=== PATIENT | female | born 1935 | race Caucasian/White ===

== ENCOUNTER → 2018-04-08 08:40 | Outpatient (CLI) | payer MEDICARE, SELFPAY ==
--- NOTE | 2018-04-08 08:00 | RAD_ITS ---
PROCEDURE: Fluoroscopic guided Hip Injection DATE: April 08, 2018. INDICATION: Female, 82 years old. Chronic right hip pain. PHYSICIAN: Eric Blackman M.D. MEDICATIONS: 6 mg of dexamethasone and 3 cc of 1% lidocaine. 2% Lidocaine administered subcutaneously for local anesthesia. ACCESS SITE: Right hip. NEEDLE: 22-gauge spinal needle. FLUOROSCOPY TIME (if supplied): (0:35) minutes/seconds FINDINGS: The risks, benefits, and alternatives to the procedure were explained to the patient. The specific risks of bleeding, infection, and neurovascular injury were detailed and accepted. Witnessed informed consent was obtained. A 22-gauge spinal needle was positioned under radiograph fluoroscopic localization. Approximately 2 cc of Isovue-300 instilled for localization purposes. Medication was then injected. The patient tolerated the procedure well without any immediate complications. The patient was placed supine with head elevated and returned to the floor in stable condition. RAD/Inj/Asp Vaughn Jt Should/Hip/Knee IMPRESSION: 1. Successful fluoroscopic guided hip injection. Electronically Signed: Eric Blackman MD at 11:05 EST , Service support ,
== END ==
LOC: RAD 08:41
PROVIDERS: Family Provider Family Medicine; PCP Family Medicine; Referring Provider Specialist; Visit Provider Specialist
DX: M16.11 Unilateral primary osteoarthritis, right hip (principal); G89.29 Other chronic pain
CPT/HCPCS: 20610; 77002; Q9967; J0702

== ENCOUNTER → 2020-04-16 12:28 | Outpatient (CLI) | payer MEDICARE, SELFPAY ==
--- NOTE | 2020-04-16 12:42 | CT_ITS ---
STUDY: CT CHEST WITH CONTRAST REASON FOR EXAM: Female, 84 years old. COUGH, FEELS SOMETHING IN AIRWAY RADIATION DOSAGE (If Supplied By Facility): CTDIvol = ( 11.46 ) mGy, DLP = ( 331.13 ) mGycm TECHNIQUE: Transaxial imaging was performed following intravenous administration of IV 100mL Isovue-370. Multiplanar coronal and sagittal images were reformatted. Individualized dose optimization techniques were used for this CT. COMPARISON: None. FINDINGS: Minimal increased markings at the right lung base laterally suggestive of scarring. Minimal linear scarring at the left lung base as well. There is no demonstrated pleural abnormality. There are calcifications of the coronary arteries. Normal mediastinum. Normal hilar regions. Normal enhanced pulmonary arteries. There is atherosclerotic calcification of the aortic arch with tortuosity and elongation of the aortic arch and descending thoracic aorta. There are multi-level degenerative changes of the thoracic spine. Increased kyphosis. There is no demonstrated abnormality of the visualized upper abdomen. CT/Chest WITH Contrast IMPRESSION: Findings suggestive of mild bibasilar scarring slightly more prominent at the right lung base. Electronically Signed: Eric Blackman MD at 14:50 EST , Service support ,
[2020-04-16 13:05] LABS: CREATININE FINGERSTICK 1.2 mg/dL (0.55-1.02)
== END ==
LOC: CT 12:37
PROVIDERS: PCP Family Medicine; Referring Provider Internal Medicine Pulmonary Disease; Visit Provider Internal Medicine Pulmonary Disease
DX: R05 Cough (principal)
CPT/HCPCS: 71260; Q9967

== ENCOUNTER → 2020-06-28 08:24 | Outpatient (CLI) | payer MEDICARE, SELFPAY ==
--- NOTE | 2020-06-28 08:37 | RAD_ITS ---
STUDY: AIR CONTRAST UPPER GI SERIES REASON FOR EXAM: Female, 84 years old. HX ULCERS/FULLNESS IN THROAT/ FLUOROSCOPY TIME (if supplied): (48 seconds) minutes/seconds. 25 images were obtained. TECHNIQUE: SINGLE CONTRAST AND AIR CONTRAST FLUOROSCOPIC IMAGES. COMPARISON: None. FINDINGS: The cervical esophagus demonstrates normal motility without aspiration. There is no stricture or extrinsic mass effect. No intraluminal polypoid mass is identified. The thoracic esophagus distends well without stricture or mucosal fold thickening. No mucosal ulcerations are identified. There is no extrinsic mass effect. There are no diverticula. No hiatal hernia or gastroesophageal reflux was identified. The stomach distends well without mucosal fold thickening or mucosal ulceration. There is no intraluminal mass. The duodenal bulb is freely distensible without deformity or ulceration. The duodenal sweep is normal in position and caliber. RAD/Upper GI w/BA Swallow IMPRESSION: Normal air-contrast upper GI series. Electronically Signed: Eric Blackman MD at 12:27 EDT , Service support ,
== END ==
PROVIDERS: PCP Family Medicine; Referring Provider Internal Medicine Pulmonary Disease; Visit Provider Internal Medicine Pulmonary Disease
DX: J39.2 Other diseases of pharynx (principal)
CPT/HCPCS: 74246

== ENCOUNTER 2021-09-04 12:54 | Day surgery (SDC) | payer MEDICARE, SELFPAY ==
[2021-09-04] MEDS: Lactated Ringers 1,000 ML 15 ML IV (13:05)
[2021-09-04 13:28] VITALS: BP 143/98; PULSE 69; RESP 18; TEMP 36.4; O2SAT 100; BMI 27.7
[2021-09-04 13:46] LABS: Bedside Glucose 120 mg/dL (74-106)
[2021-09-04] MEDS: Lidocaine 2% (5ml sdv) 5 ML VIAL.MPF (14:20)
[2021-09-04] MEDS: Phenylephrine 0.25% 15 ML NASAL.SRY 15 SPRAY NASAL (14:20)
[2021-09-04 14:41] VITALS: BP 143/98; BP 144/70; PULSE 63; RESP 18; TEMP 36.8; O2SAT 99
--- NOTE | 2021-09-04 14:42 | OP.BRONCH_ITS ---
Patient Name: Izzy Rivera Procedure Date: 09/04/2021 2:02 PM Date of : 1935 Age: 85 Procedure: Bronchoscopy Indications: Chronic cough, Chronic cough with normal CT Providers: Jon Casey MD Referring MD: Jon Casey MD Medicines: Lidocaine 2% subglottic space 10 mL, Oxygen 6 L/min Complications: No immediate complications Procedure: Pre-Anesthesia Assessment: - A History and Physical has been performed. The patient's medications, allergies and sensitivities have been reviewed. - The risks and benefits of the procedure and the sedation options and risks were discussed with the patient. All questions were answered and informed consent was obtained. - The anesthesia plan was to use moderate sedation/analgesia. After I obtained informed consent, the scope was passed under direct vision. Throughout the procedure, the patient's blood pressure, pulse, and oxygen saturations were monitored continuously - see note anasthesia- DIONTE. The bronchoscope was introduced through the right nostril and advanced to the tracheobronchial tree. The procedure was accomplished without difficulty. The patient tolerated the procedure well. The total duration of the procedure was 9 minutes. Moderate Sedation: Moderate (conscious) sedation was personally administered by an anesthesia professional. The following parameter was monitored: oxygen saturation. Findings: The endotracheal tube is in good position. The visualized portion of the trachea is of normal caliber. The jessica is sharp. The tracheobronchial tree was examined to at least the first subsegmental level. Bronchial mucosa and anatomy are normal; there are no endobronchial lesions, and no secretions. The nasopharynx/oropharynx appears normal. The larynx appears errythematous - see photo. The vocal cords appear normal. The subglottic space is normal. The trachea is of normal caliber. The jessica is sharp. The tracheobronchial tree was examined to at least the first subsegmental level. Bronchial mucosa and anatomy are normal; there are no endobronchial lesions, and no secretions. Respiratory tract: Impression: - Chronic cough - Chronic cough with normal CT - The airway examination was normal. - The airway examination was normal. - No specimens collected. - The airway examination was normal. Recommendation: - Discharge patient to home (via wheelchair). - Follow up with bronchoscopist in 3-4 weeks. Procedure Code(s): --- Professional --- 88383, Bronchoscopy, rigid or flexible, including fluoroscopic guidance, when performed; diagnostic, with cell washing, when performed (separate procedure) Diagnosis Code(s): --- Professional --- R05, Cough CPT copyright 2017 [employer]. All rights reserved. The codes documented in this report are preliminary and upon hoop coiling machine operator review may be revised to meet current compliance requirements. MD Jon Espinal MD 09/04/2021 2:41:49 PM This report has been signed electronically. Number of Addenda: 0 Note Initiated On: 09/04/2021 2:02 PM
[2021-09-04 14:45] VITALS: BP 141/73; BP 143/98; PULSE 64; RESP 16; O2SAT 98
[2021-09-04] MEDS: Lidocaine 2% Jelly 1 APPLIC Tube (14:45)
[2021-09-04 14:50] VITALS: BP 143/98; BP 156/70; PULSE 64; RESP 16; O2SAT 96
[2021-09-04 14:56] VITALS: BP 142/79; BP 143/98; PULSE 62; RESP 18; TEMP 36.4; O2SAT 97
[2021-09-04 15:17] VITALS: BP 143/98
== END 2021-09-04 15:50 | disposition home or self-care (01) ==
LOC: EN 12:55 → AC 12:56
PROVIDERS: PCP Family Medicine; Referring Provider Internal Medicine Pulmonary Disease; Visit Provider Internal Medicine Pulmonary Disease
PROC: 0BJ08ZZ Inspection of Tracheobronchial Tree, Via Natural or Artificial Opening Endoscopic (ICD-10-PCS; CPT 31622; principal; 2021-09-04 13:45)
DX: R05.3 Chronic cough (principal); E11.9 Type 2 diabetes mellitus without complications; R07.1 Chest pain on breathing; R06.02 Shortness of breath; I10 Essential (primary) hypertension; E03.9 Hypothyroidism, unspecified; K21.9 Gastro-esophageal reflux disease without esophagitis; M19.90 Unspecified osteoarthritis, unspecified site; Z79.82 Long term (current) use of aspirin; Z79.84 Long term (current) use of oral hypoglycemic drugs; Z79.899 Other long term (current) drug therapy; Z86.73 Personal history of transient ischemic attack (TIA), and cerebral infarction without residual deficits
CPT/HCPCS: 31622; 82962; J7120; J2405

== ENCOUNTER → 2024-04-26 | Outpatient (CLI) | payer MEDICARE, SELFPAY ==
--- NOTE | 2024-04-26 16:14 | RAD_ITS ---
PROCEDURE: KNEE 4 OR MORE VIEWS REASON FOR EXAM: Fell on ice TECHNIQUE: 2 view(s) of the left knee COMPARISON: None. FINDINGS: No fracture. No suspicious bone lesion. Left knee total arthroplasty. No evidence of hardware failure. Normal alignment. No effusion. Soft tissues are unremarkable. RAD/Knee 4 or More Views IMPRESSION: Left knee total arthroplasty with no evidence of hardware failure or acute osse ous abnormality. Reading Location: [facility]
--- NOTE | 2024-04-26 16:14 | RAD_ITS ---
PROCEDURE: RIBS UNI MIN 3V W/PA CHEST REASON FOR EXAM: Fell on ice TECHNIQUE: Frontal and bilateral oblique views of the bilateral ribs. COMPARISON: None. FINDINGS: No displaced rib fractures are identified. No suspicious lytic or blastic rib lesions. RAD/Ribs Uni Min 3V w/PA Chest IMPRESSION: NO EVIDENCE OF ACUTE RIB FRACTURE OR PNEUMOTHORAX. Reading Location: [facility]
== END | disposition home or self-care (01) ==
LOC: MTRAD 16:14
PROVIDERS: PCP Family Medicine; Referring Provider Nurse Practitioner; Visit Provider Nurse Practitioner
DX: M25.562 Pain in left knee (principal); W00.9XXA Unspecified fall due to ice and snow, initial encounter; R07.81 Pleurodynia
CPT/HCPCS: 71101; 73564